=== PATIENT | male | born 1960 | race Caucasian/White ===

== ENCOUNTER → 2020-03-08 | Outpatient (CLI) | payer MEDICARE, OTHER ==
[~2020-03-08] MED LIST: ASCO100018 PO; CHOL10003 PO; CYAN1TAB29 PO; ESCI10TA10 PO; SECU150S INJ; TRAM50TA2 PO; TRAZ-175 PO; VITA1TAB19 PO
== END | disposition home or self-care (01) ==
LOC: STAR 09:00
PROVIDERS: ATTEND Urology
DX: Z20.828 Contact with and (suspected) exposure to other viral communicable diseases (principal); N20.0 Calculus of kidney
CPT/HCPCS: 87635

== ENCOUNTER 2020-03-12 09:55 | Day surgery (SDC) | payer MEDICARE, OTHER ==
[~2020-03-12] VITALS: Ht 175.3 cm; Wt 67.1 kg
[2020-03-12] MEDS ORDERED: CHLORHEXIDINE 15 ML UDC MM STA (10:08)
[2020-03-12] MEDS ORDERED: LACTATED RINGERS 1,000 ML IV SCH (10:08)
[2020-03-12] MEDS ORDERED: MIDAZOLAM 1 MG/ML, 2ML ONE (10:33)
[2020-03-12] MEDS ORDERED: FENTANYL PF 250 MCG/5ML ONE (10:34)
[2020-03-12] MEDS ORDERED: DEXAMETHASONE 4 MG/ML, 1ML ONE (11:21)
[2020-03-12] MEDS ORDERED: OXYcodone 5 MG/5 ML ORAL.SOL UDC PO PRN (11:30)
[2020-03-12] MEDS ORDERED: HYDROmorphone 1 MG/ML, 1ML INJ IVPush PRN (11:30)
[2020-03-12] MEDS ORDERED: hydrALAzine 20 MG/ML, 1ML IV PRN (11:30)
[2020-03-12] MEDS ORDERED: MEPERIDINE/PF 25MG/0.5ML IVPush PRN (11:30)
[2020-03-12] MEDS ORDERED: ONDANSETRON 2MG/ML, 2ML IVPush PRN (11:30)
[2020-03-12] MEDS ORDERED: LABETALOL 5MG/ML, 20ML IV PRN (11:30)
[2020-03-12] MEDS ORDERED: PROMETHAZINE 25 MG/ML, 1ML IVPush PRN (11:30)
[2020-03-12] MEDS ORDERED: ACETAMINOPHEN 325 MG TABLET PO PRN (11:30)
[2020-03-12] MEDS ORDERED: FENTANYL PF 100 MCG/2ML IV PRN (11:30)
[2020-03-12] MEDS ORDERED: OMNIPAQUE 350 MG/ML, 50 ML BOTTLE IV ONE (11:35)
[2020-03-12] MEDS ORDERED: PROPOFOL 10 MG/ML, 20ML ONE (11:39)
[2020-03-12] MEDS ORDERED: ONDANSETRON 2MG/ML, 2ML ONE (11:39)
[2020-03-12] MEDS ORDERED: ROCURONIUM 10MG/ML,5ML ONE (11:39)
[2020-03-12] MEDS ORDERED: KETOROLAC 30 MG/1 ML ONE (11:40)
[2020-03-12] MEDS ORDERED: OMNIPAQUE 350 MG/ML, 50 ML BOTTLE ONE (13:52)
[2020-03-12] MEDS ORDERED: PHENAZOPYRIDINE 200 MG TABLET ONE (14:57)
[2020-03-12] MEDS ORDERED: PHENAZOPYRIDINE 200 MG TABLET PO PRN (15:00)
== END 2020-03-12 15:15 | disposition home or self-care (01) ==
LOC: OUT 09:55
PROVIDERS: ATTEND Urology
DX: N20.0 Calculus of kidney (principal); N40.0 Benign prostatic hyperplasia without lower urinary tract symptoms; I10 Essential (primary) hypertension; E11.9 Type 2 diabetes mellitus without complications; Z79.891 Long term (current) use of opiate analgesic; Z79.899 Other long term (current) drug therapy
CPT/HCPCS: 52356; 74420; 82360; 88300; C1758; C1769; C2617; J1100; J1885; J2250; J2405; J2704; J3010; J7120; Q9967